=== PATIENT | male | born 1960 | race Caucasian/White ===

== ENCOUNTER → 2016-12-10 | Outpatient (CLI) | payer BC ==
--- NOTE | ~2016-12-10 | MR32 ---
[facility] A Service of [facility] RADIOLOGY TEXT RESULTS PATIENT: LORENA PLAZA LOCATION: [facility] : 64 UNIT #: [id number] AGE: [address]: YOANNA PHILLIPS SEX: M ORDER DR: [id number] [place] [id number] O MR#: [id number] #: [id number] NAME: LORENA PLAZA : 1960 SEX: M STUDY DATE/TIME: 12/10/2016 14:10 UNIT: [facility] ROOM: STUDY DESCRIPTION: MR Cervical Wo Contrast Attending Physician: Yoanna Phillips M.D. Referring Physician: Yoanna Phillips M.D. Ordering Physician: Rosanne Not Listed Primary Care Physician: Yoanna Phillips M.D. MRI CENTER REPORT This report is preliminary unless electronic signature is present. EXAM Cervical spine MRI, no contrast, 12/10/2016. PROCEDURE Routine cervical spine MRI without contrast. COMPARISON None HISTORY Worsening neck pain and xokd-rfatasm-iauw-right radiculopathy over the past 4 months. FINDINGS Spine alignment is normal. Bone marrow and cord signal are normal. The posterior fossa and its contents are normal. Paraspinous soft tissues are unremarkable. At C2-3, the canal and foramina are normal. At C3-4, there is a central disc protrusion which may contact the ventral cord. There may be slight ventral cord deformity, but there does not appear to be true cord but compression. There is minimal right and no left foraminal narrowing. At C4-5, there is a left side disc and osteophyte complex. There is left side canal compromise and possible slight left ventral cord compression. There is [id number] left and minimal, if any, right foraminal narrowing. At C5-6, there is a disc and osteophyte complex with mild canal stenosis and no cord compression and mild left and no right foraminal stenosis. [facility] A Service of [facility] RADIOLOGY TEXT RESULTS PATIENT: IMEL,LORENA [id number] [birth year] UNIT #: [id number] AGE: [address]: YOANNA PHILLIPS SEX: M ORDER DR: At C6-7, there is a disc bulge and central disc protrusion with canal stenosis and mild cord compression. There is no abnormal cord signal. There is mild left and no right foraminal stenosis. At C7-T1, the canal and right foramen are normal. There is minimal left foraminal narrowing. IMPRESSION Degenerative changes with mild cord compression at C6-C7 and possible left ventral slight cord compression at L4-L5 and mild central cord deformity probably without compression at C3-C4. There is no abnormal cord signal at any level. Areas of foraminal narrowing are described in detail in the body of the report. Dictated by... Js Crowder M.D. THIS IS AN ELECTRONICALLY VERIFIED REPORT Js Crowder M.D. at 12/11/2016 3:57 PM MANAS/darien TD: 12/11/2016 13:27 JOB #: [id number] MRI CENTER REPORT Page 1 of 1
== END | disposition home or self-care (01) ==
LOC: SMRI 13:00
DX: M50.11 Cervical disc disorder with radiculopathy, high cervical region (principal); M48.02 Spinal stenosis, cervical region; M50.123 Cervical disc disorder at C6-C7 level with radiculopathy
CPT/HCPCS: 72141